=== PATIENT | male | born 1970 | race Asian ===

== ENCOUNTER → 2018-05-01 | Outpatient (CLI) | payer OTHER | LOC: BMCIMAGING 16:16 | PROVIDERS: ATTEND Internal Medicine | DX: S82.832A Other fracture of upper and lower end of left fibula, initial encounter for closed fracture (principal) ==

== ENCOUNTER → 2018-05-26 | Outpatient (CLI) | payer OTHER | LOC: BMCIMAGING 09:28 | PROVIDERS: ATTEND Podiatrist Foot & Ankle Surgery | DX: S82.425D Nondisplaced transverse fracture of shaft of left fibula, subsequent encounter for closed fracture with routine healing (principal) ==

== ENCOUNTER → 2018-06-12 | Outpatient (CLI) | payer OTHER | LOC: BMCIMAGING 15:34 | PROVIDERS: ATTEND Podiatrist Foot & Ankle Surgery | DX: S82.425D Nondisplaced transverse fracture of shaft of left fibula, subsequent encounter for closed fracture with routine healing (principal) ==

== ENCOUNTER → 2018-07-05 | Outpatient (CLI) | payer OTHER | LOC: BMCIMAGING 09:28 | PROVIDERS: ATTEND Podiatrist Foot & Ankle Surgery | DX: S82.425D Nondisplaced transverse fracture of shaft of left fibula, subsequent encounter for closed fracture with routine healing (principal) ==

== ENCOUNTER → 2018-08-02 | Outpatient (CLI) | payer OTHER | LOC: BMCIMAGING 09:34 | PROVIDERS: ATTEND Podiatrist Foot & Ankle Surgery | DX: S82.425D Nondisplaced transverse fracture of shaft of left fibula, subsequent encounter for closed fracture with routine healing (principal) ==

== ENCOUNTER → 2018-08-30 | Outpatient (CLI) | payer OTHER | LOC: BMCIMAGING 09:34 | PROVIDERS: ATTEND Podiatrist Foot & Ankle Surgery | DX: S82.832D Other fracture of upper and lower end of left fibula, subsequent encounter for closed fracture with routine healing (principal) ==

== ENCOUNTER → 2018-11-01 | Outpatient (CLI) | payer OTHER | LOC: BMCIMAGING 09:36 | PROVIDERS: ATTEND Podiatrist Foot & Ankle Surgery | DX: S82.425D Nondisplaced transverse fracture of shaft of left fibula, subsequent encounter for closed fracture with routine healing (principal) ==